=== PATIENT | female | born 2000 | race Caucasian/White ===

== ENCOUNTER 2019-03-17 15:11 | Inpatient (IN) | payer OTHER ==
--- NOTE | 2019-03-17 15:43 | EDPHY ---
H & P Time Seen by Provider: 03/17/19 15:35 HPI/ROS: CHIEF COMPLAINT: Thoughts of hurting herself HISTORY OF PRESENT ILLNESS: Patient brought in by her mother at her request. Long history of depression and anxiety, previous hospitalization 3 years ago. Worsening depression with increasing thoughts of hurting herself by cutting. Does not feel safe at home. Thoughts moderate to severe. REVIEW OF SYSTEMS: Eye: no change in vision ENT: no sore throat Cardiac: no chest pain or syncope Pulmonary: no cough or SOB Abdomen: no vomiting, diarrhea, abdominal pain. Chronic nausea since previous diagnosis of bulimia, unchanged. Musculoskeletal: no back pain Skin: Old healed abrasion left forearm Neuro: no headache Constitutional: no fever : no urinary symptoms A comprehensive 10 point review of systems is otherwise negative aside from elements mentioned in the history of present illness. PAST MEDICAL HISTORY: Includes pyelonephritis, anxiety and depression, reflux. History of bulimia Social history: Marijuana but no alcohol or other drugs General Appearance: Alert and conversant, cooperative. Eyes: No scleral icterus. ENT, Mouth: Normal mucous membranes. Respiratory: Normal respiratory effort, breath sounds equal, lungs are clear to auscultation. Cardiovascular: Regular rate and rhythm. Gastrointestinal: Abdomen is soft and non tender. Neurological: Alert, face symmetric, normal motor and sensory in extremities. Skin: Warm and dry, no rashes. Older healed abrasions on the left forearm. Musculoskeletal: No peripheral edema. Psychiatric: Depressed affect but cooperative, admits to suicidal ideation. Emergency Department course/MDM: Placed on a mental health by myself for depression and suicidal ideation with a plan. Plan for screening labs and psychiatric evaluation. 1657: Patient's Tylenol level is 20, her mom gave her 2 pills about an hour before arrival for pain from a tongue piercing. I do not think this represents overdose, no further diagnostics required, medically clear for psychiatric evaluation. 1999: The patient will be transferred to [facility] for inpatient psychiatric hospital bed not available at this facility, in stable condition; accepting physician is Dr. Perez. EMTALA form completed. Smoking Status: Never smoked Constitutional: Initial Vital Signs Temperature (C) 36.9 C 03/17/19 15:21 Heart Rate 94 03/17/19 15:21 Respiratory Rate 17 03/17/19 15:21 Blood Pressure 95/56 L 03/17/19 15:21 O2 Sat (%) 96 03/17/19 15:21 O2 Delivery Mode Room Air Allergies/Adverse Reactions: sulfamethoxazole [From Bactrim] Allergy (Verified 03/17/19 15:19) trimethoprim [From Bactrim] Allergy (Verified 03/17/19 15:19) Home Medications: Medication Instructions Recorded Venlafaxine 25MG (*) 03/17/19 Wellbutrin 100mg (*) 03/17/19 valACYclovir 03/17/19 Medical Decision Making - Data Points Laboratory Results: Laboratory Results 03/17/19 16:22 03/17/19 16:22 03/17/19 03/17/19 03/17/19 16:40 16:22 16:22 WBC RBC Hgb Hct MCV MCH MCHC RDW Plt Count MPV Neut % (Auto) Lymph % (Auto) [place] % (Auto) Eos % (Auto) Baso % (Auto) Nucleat RBC Rel Count Absolute Neuts (auto) Absolute Lymphs (auto) Absolute Monos (auto) Absolute Eos (auto) Absolute Basos (auto) Absolute Nucleated RBC Immature Gran % Immature Gran # Sodium 136 mEq/L mEq/L (135-145) Potassium 3.8 mEq/L mEq/L (3.5-5.2) Chloride 101 mEq/L mEq/L (97-110) Carbon Dioxide 26 mEq/l mEq/l (22-31) Anion Gap 9 mEq/L mEq/L (6-14) BUN 8 mg/dL mg/dL (7-23) Creatinine 0.7 mg/dL mg/dL (0.6-1.0) Estimated GFR > 60 Glucose 107 mg/dL H mg/dL (70-100) Calcium 9.4 mg/dL mg/dL (8.5-10.4) Beta HCG, Qual NEGATIVE Salicylates < 1.0 mg/dL L mg/dL (2.0-20.0) Urine Opiates Screen NEGATIVE (NEGATIVE) Acetaminophen 20 mcg/mL mcg/mL (10-30) Urine Barbiturates NEGATIVE (NEGATIVE) Ur Phencyclidine Scrn NEGATIVE (NEGATIVE) Ur Amphetamine Screen NEGATIVE (NEGATIVE) U Benzodiazepines Scrn NEGATIVE (NEGATIVE) Urine Cocaine Screen NEGATIVE (NEGATIVE) U Marijuana (THC) Screen NON-NEGATIVE H (NEGATIVE) Ethyl Alcohol < 10 mg/dL mg/dL (0-10) 03/17/19 16:22 WBC 6.82 10^3/uL 10^3/uL (3.80-9.50) RBC 4.76 10^6/uL 10^6/uL (4.18-5.33) Hgb 13.8 g/dL g/dL (12.6-16.3) Hct 42.0 % % (38.0-47.0) MCV 88.2 fL fL (81.5-99.8) MCH 29.0 pg pg (27.9-34.1) MCHC 32.9 g/dL g/dL (32.4-36.7) RDW 14.4 % % (11.5-15.2) Plt Count 230 10^3/uL 10^3/uL (150-400) MPV 9.7 fL fL (8.7-11.7) Neut % (Auto) 51.0 % % (39.3-74.2) Lymph % (Auto) 34.9 % % (15.0-45.0) [place] % (Auto) 12.3 % % (4.5-13.0) Eos % (Auto) 0.9 % % (0.6-7.6) Baso % (Auto) 0.6 % % (0.3-1.7) Nucleat RBC Rel Count 0.0 % % (0.0-0.2) Absolute Neuts (auto) 3.48 10^3/uL 10^3/uL (1.70-6.50) Absolute Lymphs (auto) 2.38 10^3/uL 10^3/uL (1.00-3.00) Absolute Monos (auto) 0.84 10^3/uL H 10^3/uL (0.30-0.80) Absolute Eos (auto) 0.06 10^3/uL 10^3/uL (0.03-0.40) Absolute Basos (auto) 0.04 10^3/uL 10^3/uL (0.02-0.10) Absolute Nucleated RBC 0.00 10^3/uL 10^3/uL (0-0.01) Immature Gran % 0.3 % % (0.0-1.1) Immature Gran # 0.02 10^3/uL 10^3/uL (0.00-0.10) Sodium Potassium Chloride Carbon Dioxide Anion Gap BUN Creatinine Estimated GFR Glucose Calcium Beta HCG, Qual Salicylates Urine Opiates Screen Acetaminophen Urine Barbiturates Ur Phencyclidine Scrn Ur Amphetamine Screen U Benzodiazepines Scrn Urine Cocaine Screen U Marijuana (THC) Screen Ethyl Alcohol Departure - Departure Disposition: Other Psych, Not [facility] Clinical Impression: Severe major depression, Suicidal ideation Condition: Good Referrals: NONE *PRIMARY CARE P,. [Primary Care Provider] - As per Instructions
[2019-03-17 16:31] LABS: PLATELET COUNT 230 10^3/uL (150-400)
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
--- NOTE | 2019-03-17 21:29 | ASMTTCLDSP ---
TLC Discharge Disposition Disposition: Answers: Admit Discharge Concerns/Recommendations: Notes: In consultation with [facility] ED physician, Wilfredo Hatch MD and on-call psychiatrist, Madalyn Perez MD, both concurred that pt appears to meet 27-65 criteria requiring psychiatric hospitalization as pt appears to be at risk of harm to self due to a mental illness condition. Pt was read the Patient Rights and Responsibilities Statement on 03/17/19 at 20:00, original placed on chart, and was given photocopy of Rights. Pt signed the Patient Rights. Pt was given the [facility] prohibited belongings list while in the ED. Was patient given the Answers: Yes Inpatient Behavioral Health Prohibited Belongings List while in the ED? For inpatient Madalyn Perez MD admission, the following psychiatrist agreed to accept patient for admission to Behavioral Health ([facility]): Date Signed: 03/17/2019 09:28 PM Electronically Signed By:Yuliana Teresa
[2019-03-17] MEDS ORDERED: LORazepam 0.5 MG TAB PO PRN (21:30)
[2019-03-17] MEDS ORDERED: MAG HYDROX/AL HYDROX/SIMETH 30 ML UDCUP PO PRN (21:30)
[2019-03-17] MEDS ORDERED: NICOTINE POLACRILEX 2 MG GUM B PRN (21:30)
[2019-03-17] MEDS ORDERED: MAGNESIUM HYDROXIDE 30 ML UDCUP PO PRN (21:30)
[2019-03-17] MEDS ORDERED: MELATONIN 3 MG TAB PO PRN (21:30)
[2019-03-17] MEDS: valACYclovir 500 MG TAB PO SCH (22:52)
[2019-03-17] MEDS: diphenhydrAMINE 25 MG CAP PO PRN (22:52)
--- NOTE | 2019-03-18 08:49 | ASMTBHMTP ---
Master Treatment Plan Master Treatment Plan Answers: Depressed Mood with for: Suicidal Ideation Date: 03/18/2019 Diagnosis on Admission: Major Depressive Disorder, recurrent, severe 296.33 (F33.2) Expected length of stay: 3-5 Reason for admission: Notes: Pt is a 18 year old female with a hx of depression and cannabis use who presented voluntarily with her mother to [facility] Ed today complaining of increased depression and suicidal ideation. Pt stated she has been using marijuanna every day for the past 2.5 years and stated, " This addiction is getting is the way of getting a job, going to school and having relationships." Pt states everytime she stops using, she starts to feel sucidal and starts to feel like she wants to hurt herself. Pt states she can usually only go 2 days before she is unable to tolerate the feelings anymore and then she uses again. Pt stated, " I don't want to be here but I don't want to kill myself because I have goals too." Pt states she wants help "really bad." Pts mother states pt is "unstable and has been unstable for a long time." MOC states pt is very irritable with her and that she used to be the one she woud go to keep her safe. MOC states, " She is angry at the world, afraid of the world, sad at the world. I can't offer perspective anymore. I'm not her go to person anymore." Patient's stated presenting problems: Notes: "I needed weed to suppress emotions from trauma. I stopped using the weed so I'm having a lot of emotions coming up. I feel shame and panic". Patient's goals for treatment: Notes: "Skills for emotional distress and emotional regulation". Patient's strengths: Notes: "I'm caring, creative patient and strong". Identify supports outside of hospital: Notes: "[employer] teacher and community, a partner, some friends and family". Discharge criteria: Notes: SI will resolve and ct. will have a plan to safely manage recurrent SI. Initial disposition plan/considerations: Notes: Ct. will participate in unit activities and work on scheduling follow up appointments. Master Treatment Plan Required Signatures Psychiatrist signature: Answers: Psychiatrist: RN on-shift signature: Answers: RN: Patient signature: Answers: Patient: Date Signed: 03/18/2019 08:49 AM Electronically Signed By:Shayla Lovett
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
[2019-03-18] MEDS: valACYclovir 500 MG TAB PO SCH ×2 (09:17→22:33)
[2019-03-18] MEDS: VENLAFAXINE HCL 37.5 MG TAB PO SCH (09:17)
[2019-03-18] MEDS: buPROPion 75 MG TAB PO SCH (09:24)
[2019-03-18] MEDS: ACETAMINOPHEN 325 MG TAB PO PRN (09:30)
--- NOTE | 2019-03-18 10:11 | PDMN ---
Medical Necessity Medical necessity: [facility] [id number] Major Depressive Disorder, Adult: Inpatient Care, 3 days: 18 yo w/ major depressive d/o, recurrent, severe, with anxious distress , PTSD and cannabis use d/o, severe. M1 hold for dx above w/ suicidal ideation. Admit IP status [facility] unit.
[2019-03-18] MEDS: DOCOSANOL 2 GM CREAM TP PRN (19:00)
[2019-03-18] MEDS: diphenhydrAMINE 25 MG CAP PO PRN (22:34)
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
--- NOTE | 2019-03-19 08:22 | SOAPPROG ---
SOAP Progress Note Assessment/Plan: Assessment: Major Depressive Disorder, Severe, with anxious distress. Cannabis Use Disorder , Severe. Improvement noted. (see subjective/objective note). Patient could benefit from continued inpatient hospitalization for crisis stabilization, safety, and medication evaluation. Consider discharge tomorrow. Plan: 1. Psychotropic medications: After reviewing options, risks, and benefits patient agrees to continue current medications. No medication changes at this time as more time is needed to determine ongoing tolerability and efficacy. Plan is to continue to observe patient for response and side effects from medications, and ongoing monitoring and evaluation. 2. Review with patient informed consent and recommendations for psychotropic medication treatment listed below 3. Labs: no additional at this time 4. Therapy: continue milieu and group therapy 5. Further investigation including gathering information from patients relatives and review of past case records to inform treatment plan. 6. Safety/Wellness plan and follow-up outpatient appointments to be established prior to discharge. Next steps are for patient to meet with youth career specialist to plan a safe discharge plan and establish outpatient services for ongoing treatment. 7. Confer with inpatient treatment team regarding treatment plan. 8. Psychosocial stressors addressed through residential case manager. 9. Legal status: M1 10. Consider discharge Saturday if patient is in stable condition, safe, and has a safe discharge plan. PSYCHOTROPIC MEDICATION TREATMENT INFORMED CONSENT and RECOMMENDATIONS: Review nature of condition, diagnosis, and prognosis. Review nature and purpose of psychotropic medication treatment. Review type of psychotropic medications being ordered. Review risk and benefits of psychotropic medication treatment. Review probable length of time patient will need to take medications. Review risk and benefits of not undergoing psychotropic medication treatment. Review alternative treatments to psychotropic medications. Review psychotropic medications contraindications, drug-drug interactions, side effects, and importance of reporting any side effects to a psychiatric provider or nurse during inpatient hospitalization, and upon discharge to patients psychiatric outpatient provider, primary care provider, or other health tire care manager. Review importance of asking a nurse, psychiatric provider, or primary care provider any questions or problems concerning the psychotropic medications. Verify patient understands the information that has been provided, and understands, accepts, and agrees to psychotropic medications. Review patients safety plan and importance of patient to report to staff while hospitalized if patient is ever a danger to self/others, or unable to care for self, and upon discharge, the importance for patient to contact [facility] or [facility], or go to the nearest emergency room, if patient is ever a danger to self/others, or unable to care for self. Recommend that upon discharge patient establish medication management treatment with a psychiatric provider, establishes routine therapy appointments, and follow-up with primary care provider. Verify patient understands and agrees to these recommendations. 03/19/19 08:21 Subjective: Following up with patient for evaluation of mood and safety. Patient reports, "Feel better, didn't sleep well though because not used to this bed, it's uncomfortable." Patient expresses the following psychiatric symptoms mild depression. Patient reports taking medications as prescribed. Patient does not report undesirable side effects from the medications, and agrees to continue current medications. Patient agrees to follow-up for therapy, substance abuse treatment, and medication management after discharge. Patient agrees to family meeting tomorrow with this EQUIPMENT COORDINATOR, and her mother or father or both. Objective: Vital Signs Temp Pulse Resp BP Pulse Ox 36.8 C 70 15 101/61 97 03/19/19 06:00 03/19/19 06:00 03/19/19 06:00 03/19/19 06:00 03/19/19 06:00 MSE: The patient is a well-nourished female looking stated chronological age. Attire is appropriate dress is hospital garb. Grooming status is appropriate. Ambulation is independent. Gait is normal and coordinated. Posture is normal. Eye contact is appropriate. Motor activity is appropriate with purposeful, organized, coordinated movements; with no involuntary movements. Attitude is cooperative. Patient appears attentive and relates well to this interviewer. Language production is spontaneous. R/R/V normal. Articulation is clear. Patient reports mood as okay with congruent affect. Patients thought process is linear and logical with no signs of thought disorder. Patient does not report suicidal/homicidal thoughts, ideas, or plans. Patient reports she currently feels safe, and reports no self-injurious ideation. Patient denies auditory, visual hallucinations. Patient denies delusions. Patient does not appear to be attending to internal stimuli. Patients attention and concentration are fair. Patient is oriented to person, place, time, and situation. Patients insight is fair. Patients judgment is fair. SUBSTANCE ABUSE BRIEF INTERVENTION: Brief intervention regarding the risks of THC abuse is provided to patient with goal to reduce the risk of harm that could result from the continued use of THC, with the general aim to investigate the problem, raise awareness of problem, develop a solution with the patient, recommend a specific change or activity, and motivate the patient toward change. Assess substance abuse behavior and give supportive advice about harm reduction, recommend a reduction in hazardous/at-risk consumption patterns, and facilitate referrals for additional specialized treatment with long term care administrator. Intermediate goal is for the patient to quit and attend outpatient substance abuse treatment. Intervention focus on intermediate goals to allow for more immediate success in the treatment process to keep the patient motivated. Review following with patient: Cannabis use risks: Short- term use: impaired short-term memory, impaired motor coordination, altered judgement, in high doses paranoia and psychosis. Long-term use addiction, diminished life satisfaction and achievement, symptoms of chronic bronchitis, and increased risk of chronic psychosis disorders if predisposition to such disorders. In withdrawal anger, aggression irritability, anxiety and nervousness, decreased appetite or weight loss, restlessness, and sleep difficulties with strange dreams. OUTPATIENT SUBSTANCE ABUSE TREATMENT: Patient referred to outpatient provider and treatment for continued treatment related to substance abuse. - Time Spent With Patient Time Spent With Patient: 15 minutes, met with patient individually. - Pending Discharge Pending Discharge Within 24 Hours: No Pending Discharge Within 48 Hours: No ICD10 Worksheet Patient Problems: Problems Problem Status Onset Severe major depression Acute Suicidal ideation Acute
[2019-03-19] MEDS: VENLAFAXINE HCL 37.5 MG TAB PO SCH (09:52)
[2019-03-19] MEDS: buPROPion 75 MG TAB PO SCH (09:52)
[2019-03-19] MEDS: valACYclovir 500 MG TAB PO SCH ×2 (09:52→21:52)
[2019-03-19] MEDS: DOCOSANOL 2 GM CREAM TP PRN ×2 (10:11→21:52)
--- NOTE | 2019-03-19 12:17 | ASMTBHDC ---
Notes Note: Notes: The patient met with the provider and this law writer using the career coach prior to clinical treatment team rounds. We discussed the patient's treatment, prescriptions, discharge plan, and resources. The patient completed a safety plan and reviewed with staff. Regarding suicidal ideation, the patient stated "I'll deal with the impossible." She was observed collapsing on to her bed in a posture similar to "child's pose" and remaining silent. The patient also participated in clinical treatment team rounds where she delivered origami gifts to the male providers. She stated, "Although men are my reason for being here. I will not hate all of them." She reported "no current desire" to suicide and a "optimism" toward the future. The patient referred to the medication as giving her "strength" when she had none. She plans to continue to medication outpatient at this time. The patient's upcoming follow up appointment is listed below. [facility] [address], [address] Intake# [phone] Next Intake Appointment: March 20 @ 8:30, check-in 8:15. Date Signed: 03/19/2019 12:17 PM Electronically Signed By:Maren Pepper
[2019-03-19] MEDS: diphenhydrAMINE 25 MG CAP PO PRN (22:51)
[2019-03-20] MEDS: ACETAMINOPHEN 325 MG TAB PO PRN (01:34)
[2019-03-20 06:49] VITALS: BP 109/64
[2019-03-20] MEDS: valACYclovir 500 MG TAB PO SCH (08:25)
[2019-03-20] MEDS: VENLAFAXINE HCL 37.5 MG TAB PO SCH (08:25)
[2019-03-20] MEDS: buPROPion 75 MG TAB PO SCH (08:25)
--- NOTE | 2019-03-20 15:12 | BDS ---
[f rep st] BEHAVIORAL HEALTH DISCHARGE SUMMARY REASON FOR ADMISSION: From the ED note dated 03/17, the patient was brought to the emergency department by her mother. The patient reported a long history of depression, anxiety. The patient reported worsening depression, thoughts of hurting herself by cutting. Patient reported she does not feel safe at home. The patient was admitted involuntarily and on an M1 hold, danger to self, admitted for safety, crisis stabilization, medication management. ADMITTING DIAGNOSES: 1. Major depressive disorder, severe. 2. Posttraumatic stress disorder. ADMISSION PHYSICAL EXAM: Patient was seen on 03/17, during evaluation for history and physical for medical clearance for inpatient psychiatric hospitalization and treatment. The patient was medically cleared for inpatient psychiatric hospitalization and treatment. For further details, please refer to dictation document dated 03/17. ADMISSION LABS: 1. Noncontributory. 2. Noncontributory. 3. Hemoglobin A1c 5.6. 4. Liver function within normal limits. 5. Lipid panel within normal limits. 6. Beta HCG qualitative test negative. 7. Toxicology screen non-negative for THC, negative for all other substances screened, negative for ethyl alcohol. MAJOR PROCEDURES OR TESTS: None. HOSPITAL COURSE: Prominent symptoms and behaviors while the patient was hospitalized were reports of severe anxiety and depression. Treatment modalities utilized were milieu therapy. Effexor XR was continued at 112.5 mg to target mood symptoms, was tolerated with no report of side effects and with good response. Wellbutrin 75 mg p.o. daily was continued to target sexual dysfunction related to side effects of Effexor XR, it was tolerated with no report of side effects and good response. At time of discharge, the patient requested trazodone 25 mg p.o. at bedtime p.r.n. The patient reported she has taken this medication in the past with good response for insomnia. Patient has improved considerably with no signs of psychiatric symptoms and no psychiatric symptoms expressed. Patient reports she has improved since admission, states to be in stable condition, feels safe to discharge, and she contracts for safety. Patients response to treatment was good. There were no adverse or unexpected results of treatment. The patient was safe throughout stay, active in treatment, engaged in groups, and was appropriate with staff. Patient met with treatment team prior to discharge to assess readiness to discharge and review discharge plan. The treatment team consensus is the patient in stable condition, has a safe discharge plan, and is ready to discharge today. CONDITION AT DISCHARGE: Patient is in stable condition and is no longer a danger to self or others, and is not gravely disabled due to mental illness. Patient is no longer in need of inpatient level of care, and can be safely and effectively treated within the community. The patients level of risk at time of discharge is low. MSE: The patient is casually dressed and with good hygiene , and looks stated age. Patient is sitting, posture is upright, and position is relaxed. Patient appears awake, alert, and responds appropriately and reasonably during interview. Patient is engaged, relates well to interviewer, and emotional facial expression is appropriate to situation and changes appropriately with topic. Patient is cooperative, makes comfortable eye contact , and movements are voluntary, deliberate, coordinated, and smooth and even with no inappropriate movements. Patient makes laryngeal sounds effortlessly and shares conversation appropriately; pace of conversation is appropriate, and stream of talking is fluent; articulation is clear and understandable; word choice is effortless and appropriate for education level; completes sentences, occasionally pausing to think; rate and volume are appropriate for interview and setting. Patient reports mood as euthymic. Patients affect is stable with full variable range, congruent with mood, and appropriate to speech and circumstances. Patient has linear and logical thinking, with no loose associations, tangential thought, thought blocking, concrete thinking, or any other signs of formal thought disorder. Patient denies suicidal and homicidal ideation, and denies hallucinations and delusions. Patient appears to be a reliable historian with sound judgement and good insight into current condition. Patient has no apparent dysfunction in recent or remote memory noted , and no evidence of gross cognitive dysfunction noted at any point during the interview. DISCHARGE DIAGNOSIS: 1. Major depressive disorder, severe. 2. Posttraumatic stress disorder. CURRENT MEDICATIONS: After reviewing options, risks, benefits with the patient the patient agrees to continue: 1. Abreva 1 application topical twice daily p.r.n. 2. Trazodone 25 mg p.o. at bedtime p.r.n. 3. Venlafaxine Effexor XR 112.5 mg p.o. daily. 4. Valtrex 1000 mg p.o. twice daily. 5. Bupropion 75 mg p.o. daily. The patient requested a prescription for trazodone at the time of discharge. Prescription for 30 days is provided. Prescription and medications are reviewed with the patient at time of discharge to ensure accuracy and patient understanding. The patient reports she has other prescriptions for the remainder of the medications listed above. DISPOSITION: The patient left hospital independently and voluntarily. Plans to continue to live with her parents. The patient left the hospital with her mother after meeting with this STRADDLE BUG and her mother, at patient's request, for family meeting. FOLLOWUP: program coordinator for residence life reports the appropriate outpatient follow-up services have been established and outpatient appointments have been scheduled. The patient received written instructions with times and dates of outpatient follow-up appointments. The following follow-up recommendations were provided to the patient at discharge: Continue psychotropic medications as prescribed and attend appointments as scheduled. Report any side effects to a psychiatric outpatient provider, a primary care provider, or other health senior caregiver. Address any questions or problems concerning the psychotropic medications with a psychiatric outpatient provider, a primary care provider, or other health senior caregiver. Contact [facility] or [facility], or go to the nearest emergency room, if you are ever a danger to yourself/others, or unable to care for yourself. As soon as possible, establish a routine medication management treatment with a psychiatric provider, establish routine therapy appointments, and follow-up with a primary care provider. SUBSTANCE ABUSE BRIEF INTERVENTION: Brief intervention regarding the risks of cannabis abuse is provided to patient with goal to reduce the risk of harm that could result from the continued use of cannabis, with the general aim to investigate the problem, raise awareness of problem, develop a solution with the patient, recommend a specific change or activity, and motivate the patient toward change. Assess substance abuse behavior and give supportive advice about harm reduction, recommend a reduction in hazardous/at-risk consumption patterns, and facilitate referrals for additional specialized treatment with farm or ranch animal caretaker. Intermediate goal is for the patient to quit and attend outpatient substance abuse treatment. Intervention focus on intermediate goals to allow for more immediate success in the treatment process to keep the patient motivated. Review following with patient: Cannabis use risks: Short- term use: impaired short-term memory, impaired motor coordination, altered judgement, in high doses paranoia and psychosis. Long-term use addiction, diminished life satisfaction and achievement, symptoms of chronic bronchitis, and increased risk of chronic psychosis disorders if predisposition to such disorders. In withdrawal anger, aggression irritability, anxiety and nervousness, decreased appetite or weight loss, restlessness, and sleep difficulties with strange dreams. OUTPATIENT SUBSTANCE ABUSE TREATMENT: Patient referred to outpatient provider and treatment for continued treatment related to substance abuse. LEGAL COURSE: The patient was admitted involuntarily on an M1 hold for inpatient psychiatric hospitalization and treatment. Patient was discharged today independently and voluntarily. ATTITUDE AT TIME OF DISCHARGE: The patients attitude was positive at time of discharge, and patient reports looking forward to discharging today. The patient reports she feels safe to discharge, is no longer a danger to herself or others, is in stable condition, and contracts for safety. Patient states she will continue medications as prescribed, and establish medication management treatment with an outpatient provider after discharge. Patient reports she understands the information that has been provided to her, and she understands, accepts, and agrees to psychotropic medications. Patient describes internal protective factors as the coping skills she has learned while hospitalized here, and she plans to continue to practice these coping skills after discharge. FAMILY MEETING: This STRADDLE BUG, at patient's request, met with patient and patient's mother at time of discharge to review medication options, risks, and benefits, substance abuse treatment options, and discharge plan including following up for ongoing medication management, therapy, and engaging in IOP/dual-diagnosis programs after discharge. Also reviewed risks and benefits of adding Trazodone 25 mg po QHS PRN for sleep/insomnia and other treatment options for sleep/ insomnia. Patient and patient's mother reported patient has responded well to and tolerated Trazodone 25 mg po QHS for sleep/insomnia in the past, and patient requested RX prior to discharge. LABS AND STUDIES: There were no pending labs or studies at time of discharge. ADVANCED DIRECTIVES: There are no advance directives on file. The patient was full code during this hospitalization. The following psychotropic medication treatment informed consent and recommendations were provided to the patient at time of discharge. Patient reports she understands, accepts, and agrees to the information that has been provided. PSYCHOTROPIC MEDICATION TREATMENT INFORMED CONSENT and RECOMMENDATIONS: Review nature of condition, diagnosis, and prognosis. Review nature and purpose of psychotropic medication treatment. Review type of psychotropic medications being prescribed. Review risk and benefits of psychotropic medication treatment. Review probable length of time will need to take medications. Review risk and benefits of not undergoing psychotropic medication treatment. Review alternative treatments to psychotropic medications. Review psychotropic medications contraindications, side effects, and importance of reporting any side effects to a psychiatric provider, primary care provider, or other health senior caregiver. Review importance of her asking a psychiatric provider or primary care provider any questions or problems concerning the psychotropic medications. Review importance of reporting to a psychiatric provider, primary care provider, or other health senior caregiver if she plans to or becomes . Review safety plan and the importance to contact [facility] or [facility] , or go to the nearest emergency room, if ever a danger to yourself/others, or unable to care for yourself. Recommend upon discharge to establish routine medication management treatment with a psychiatric provider, establish routine therapy appointments, and follow-up with a primary care provider. Verify patient understands, accepts, and agrees to the information that has been provided. /[id number]
== END 2019-03-20 11:58 | disposition home or self-care (01) | DRG 885 ==
LOC: BBEH 21:05
PROVIDERS: ADMIT Psychiatry & Neurology Behavioral Neurology & Neuropsychiatry; ATTEND Psychiatry & Neurology Behavioral Neurology & Neuropsychiatry
DX: F33.3 Major depressive disorder, recurrent, severe with psychotic symptoms (principal); F43.10 Post-traumatic stress disorder, unspecified; F12.959 Cannabis use, unspecified with psychotic disorder, unspecified
CPT/HCPCS: 80305; G0480